=== PATIENT | female | born 1975 | race Caucasian/White ===

== ENCOUNTER 2021-06-01 21:12 | Emergency (ER) | payer OTHER ==
[2021-06-01] MEDS ORDERED: HYDROmorphone 1 MG/ML Syringe IVPUSH ONE ×2 (21:29→23:12)
[2021-06-01 21:50] VITALS: BP 127/60; PULSE 116
[2021-06-01 22:11] LABS: BENZODIAZEPINE,URINE NEGATIVE (NEGATIVE); MDMA (ECSTASY), URINE NEGATIVE (NEGATIVE); METHADONE,URINE NEGATIVE (NEGATIVE); METHAMPHETAMINES,URINE NEGATIVE (NEGATIVE); OPIATES,URINE NEGATIVE (NEGATIVE); TCA,URINE POSITIVE (NEGATIVE)
[2021-06-01 22:12] LABS: AMPHETAMINES,URINE NEGATIVE (NEGATIVE); BARBITURATES,URINE NEGATIVE (NEGATIVE); OXYCODONE,URINE NEGATIVE (NEGATIVE); PHENCYCLIDINE,URINE NEGATIVE (NEGATIVE)
--- NOTE | 2021-06-01 22:14 | EDM.PDOC ---
ED HPI GENERAL MEDICAL PROBLEM - General Chief Complaint: Abdominal Pain Stated Complaint: ABDOMINAL PAIN-HURTS TO PEE Time Seen by Provider: 06/01/21 21:45 Source of Information: Reports: Patient, RN, RN Notes Reviewed History Limitations: Reports: No Limitations - History of Present Illness INITIAL COMMENTS - FREE TEXT/NARRATIVE: Antoinette is a 46 y/o male who presents to the ED via personal vehicle with complaints of midline suprapubic tenderness. The patient reports her pain began abruptly approximately 30 minutes prior to her arrival while she was urinating. She states she was unable to continue voiding as the pain became too great. She characterizes the pain as sharp cramping which is now radiating into her left flank. 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 She denies attests to a "stomach bug" two days ago but otherwise denies recent illness. She denies fever, shaking chills, vision changes, dizziness, palpitations, shortness of breath, nausea, vomiting, hematuria, or diarrhea. Her last meal was this evening and consisted of pizza. She has taken no medications or performed any supportive cares for her symptoms. - Related Data Allergies Allergy/AdvReac Type Severity Reaction Status Date / Time No Known Allergies Allergy Verified 01/09/15 12:52 Home Meds: Home Meds . [No Known Home Meds] 01/09/15 [History] Past Medical History Other [employer] History: Breast Reduction - Past Surgical History Female Surgical History: Reports: Hysterectomy Other Female Surgeries/Procedures: 2016 Social & Family History - Tobacco Use Tobacco Use Status *Q: Never Tobacco User ED ROS GENERAL - Review of Systems Review Of Systems: Comprehensive ROS is negative, except as noted in HPI. ED EXAM, RENAL/ - Physical Exam Exam: See Below Exam Limited By: No Limitations General Appearance: Alert, Moderate Distress (Pain to midline suprapubic region) Eye Exam: Bilateral Eye: EOMI, Normal Inspection, PERRL (3mm) Ears: Normal External Exam, Hearing Grossly Normal Nose: Normal Inspection Throat/Mouth: Normal Inspection, Normal Oropharynx, Normal Voice, No Airway Compromise Head: Atraumatic, Normocephalic Neck: Normal Inspection, Supple, Non-Tender, Full Range of Motion Respiratory/Chest: No Respiratory Distress, Lungs Clear, Normal Breath Sounds, No Accessory Muscle Use, Chest Non-Tender. No: Crackles, Rales, Rhonchi, Wheezing, Stridor Cardiovascular: Normal Peripheral Pulses, Regular Rate, Rhythm, No Gallop, No Murmur, No Rub, Tachycardia GI/Abdominal: Normal Bowel Sounds, Soft, No Distention, No Abnormal Bruit, No Mass, Pelvis Stable, Guarding, Tender (Diffuse to abdomen, greatest to LLQ). No: Rigid, Rebound (Female) Exam: Deferred Rectal (Female) Exam: Deferred Back Exam: Normal Inspection, Full Range of Motion. No: CVA Tenderness (L), CVA Tenderness (R) Extremities: Normal Inspection, Normal Range of Motion, Normal Capillary Refill Neurological: Alert, Oriented, CN II-XII Intact, Normal Cognition, No Motor/Sensory Deficits Psychiatric: Anxious, Tearful Skin Exam: Warm, Dry, Intact, Normal Color, No Rash. No: Jaundice, Mottled, [place] Lymphatic: No Adenopathy Course - Vital Signs Last Recorded V/S: Last Vital Signs Temp 97.4 F 06/01/21 21:47 Pulse 116 H 06/01/21 21:47 Resp 20 06/01/21 21:47 BP 127/60 06/01/21 21:47 Pulse Ox 97 06/01/21 21:47 - Orders/Labs/Meds Orders: Active Orders 24 hr Category Date Time Status LACTIC ACID [CHEM] Routine Lab 06/02/21 00:21 Ordered Labs: Laboratory Tests 06/01/21 06/01/21 06/01/21 Range/Units 21:40 21:40 21:40 WBC 5.1 (5.0-10.0) 10^3/uL RBC 4.02 L (4.2-5.4) 10^6/uL Hgb 12.4 (12.0-16.0) g/dL Hct 37.6 (37.0-47.0) % MCV 93.5 (80-100) fL MCH 30.8 (27.0-34.0) pg MCHC 33.0 (33.0-35.0) g/dL Plt Count 301 (150-450) 10^3/uL Neut % (Auto) 28.0 L (42.2-75.2) % Lymph % (Auto) 57.1 H (20.5-50.1) % Garza % (Auto) 13.9 H (2-8) % Eos % (Auto) 0.8 L (1.0-3.0) % Baso % (Auto) 0.2 (0.0-1.0) % Sodium 139 (136-145) mmol/L Potassium 3.3 L (3.5-5.1) mmol/L Chloride 102 (98-107) mmol/L Carbon Dioxide 25 (21-32) mmol/L Anion Gap 15.3 H (7-13) mEq/L BUN 11 (7-18) mg/dL Creatinine 0.89 (0.55-1.02) mg/dL Est Cr Clr Drug Dosing 77.62 mL/min Estimated GFR (MDRD) > 60 BUN/Creatinine Ratio 12.4 (No establ ref range) Glucose 91 (70-99) mg/dL Lactic Acid 2.2 H* (0.4-2.0) mmol/L Calcium 8.6 (8.5-10.1) mg/dL Magnesium 1.9 (1.8-2.4) mg/dL Total Bilirubin 0.1 L (0.2-1.0) mg/dL AST 17 (15-37) U/L ALT 33 (14-59) U/L Alkaline Phosphatase 53 (46-116) U/L C-Reactive Protein 1.0 H (0.0-0.9) mg/dL Total Protein 7.0 (6.4-8.2) g/dL Albumin 3.4 (3.4-5.0) g/dL Globulin 3.6 Albumin/Globulin Ratio 0.9 Amylase 42 (25-115) U/L Lipase 114 (73-393) U/L HCG, Qual Negative Urine Color (YELLOW) Urine Appearance (CLEAR) Urine pH (5.0-9.0) Ur Specific [place] (1.005-1.030) Urine Protein (NEGATIVE) Urine Glucose (UA) (NEGATIVE) Urine Ketones (NEGATIVE) Urine Occult Blood (NEGATIVE) Urine Nitrite (NEGATIVE) Urine Bilirubin (NEGATIVE) Urine Urobilinogen (0.2-1.0) mg/dL Ur Leukocyte Esterase (NEGATIVE) Urine Opiates Screen (NEGATIVE) Ur Oxycodone Screen (NEGATIVE) Urine Methadone Screen (NEGATIVE) Ur Barbiturates Screen (NEGATIVE) U Tricyclic Antidepress (NEGATIVE) Ur Phencyclidine Scrn (NEGATIVE) Ur Amphetamine Screen (NEGATIVE) U Methamphetamines Scrn (NEGATIVE) Urine MDMA Screen (NEGATIVE) U Benzodiazepines Scrn (NEGATIVE) Urine Cocaine Screen (NEGATIVE) U Marijuana (THC) Screen (NEGATIVE) Ethyl Alcohol 20 (0) mg/dL SARS-CoV-2 RNA (FLRO) (NEGATIVE) 06/01/21 06/01/21 06/01/21 Range/Units 21:54 21:54 22:00 WBC (5.0-10.0) 10^3/uL RBC (4.2-5.4) 10^6/uL Hgb (12.0-16.0) g/dL Hct (37.0-47.0) % MCV (80-100) fL MCH (27.0-34.0) pg MCHC (33.0-35.0) g/dL Plt Count (150-450) 10^3/uL Neut % (Auto) (42.2-75.2) % Lymph % (Auto) (20.5-50.1) % Garza % (Auto) (2-8) % Eos % (Auto) (1.0-3.0) % Baso % (Auto) (0.0-1.0) % Sodium (136-145) mmol/L Potassium (3.5-5.1) mmol/L Chloride (98-107) mmol/L Carbon Dioxide (21-32) mmol/L Anion Gap (7-13) mEq/L BUN (7-18) mg/dL Creatinine (0.55-1.02) mg/dL Est Cr Clr Drug Dosing mL/min Estimated GFR (MDRD) BUN/Creatinine Ratio (No establ ref range) Glucose (70-99) mg/dL Lactic Acid (0.4-2.0) mmol/L Calcium (8.5-10.1) mg/dL Magnesium (1.8-2.4) mg/dL Total Bilirubin (0.2-1.0) mg/dL AST (15-37) U/L ALT (14-59) U/L Alkaline Phosphatase (46-116) U/L C-Reactive Protein (0.0-0.9) mg/dL Total Protein (6.4-8.2) g/dL Albumin (3.4-5.0) g/dL Globulin Albumin/Globulin Ratio Amylase (25-115) U/L Lipase (73-393) U/L HCG, Qual Urine Color Yellow (YELLOW) Urine Appearance Clear (CLEAR) Urine pH 7.0 (5.0-9.0) Ur Specific [place] 1.010 (1.005-1.030) Urine Protein Negative (NEGATIVE) Urine Glucose (UA) Negative (NEGATIVE) Urine Ketones Negative (NEGATIVE) Urine Occult Blood Negative (NEGATIVE) Urine Nitrite Negative (NEGATIVE) Urine Bilirubin Negative (NEGATIVE) Urine Urobilinogen 0.2 (0.2-1.0) mg/dL Ur Leukocyte Esterase Negative (NEGATIVE) Urine Opiates Screen Negative (NEGATIVE) Ur Oxycodone Screen Negative (NEGATIVE) Urine Methadone Screen Negative (NEGATIVE) Ur Barbiturates Screen Negative (NEGATIVE) U Tricyclic Antidepress Positive H (NEGATIVE) Ur Phencyclidine Scrn Negative (NEGATIVE) Ur Amphetamine Screen Negative (NEGATIVE) U Methamphetamines Scrn Negative (NEGATIVE) Urine MDMA Screen Negative (NEGATIVE) U Benzodiazepines Scrn Negative (NEGATIVE) Urine Cocaine Screen Negative (NEGATIVE) U Marijuana (THC) Screen Negative (NEGATIVE) Ethyl Alcohol (0) mg/dL SARS-CoV-2 RNA (FLOR) Negative (NEGATIVE) Meds: Medications Discontinued Medications Generic Name Dose Route Start Last Admin Trade Name Freq PRN Reason Stop Dose Admin Hydromorphone HCl 1 mg 06/01/21 21:29 06/01/21 22:29 Hydromorphone 1 Mg/Ml Syringe IVPUSH 06/01/21 21:30 Not Given ONETIME ONE Hydromorphone HCl 1 mg 06/01/21 23:12 06/01/21 23:21 Hydromorphone 1 Mg/Ml Syringe IVPUSH 06/01/21 23:13 1 mg ONETIME ONE Administration Iopamidol 100 ml 06/01/21 22:37 06/01/21 23:19 Iopamidol 612 Mg/Ml 100 Ml Bottle IVPUSH 06/01/21 22:38 100 ml ONETIME ONE Administration Ondansetron HCl 4 mg 06/01/21 21:29 06/01/21 23:22 Ondansetron 4 Mg/2 Ml Sdv IVPUSH 06/01/21 21:30 4 mg ONETIME ONE Administration - Radiology Interpretation Free Text/Narrative:: [facility] Final Radiology Report Call: [phone] assistance Online chat: [email or web address] Name: ANTOINETTE NEELY Age: 46Years F Date: 06/01/2021 SSN: -- : [id number] Study: CT ABDOMEN PELVIS W CONT Requesting Physician: Gladys Ordaz Images: [id number] Addl Studies: Provided Clinical History: Abrupt suprapubic pain, radiates to left flank Contrast: With Contrast Medium: isovue 300 Contrast Amount: 100 mL Contrast Method: Intravenous (IV) Page 1 of 2 PROCEDURE INFORMATION: Exam: CT Abdomen And Pelvis With Contrast Exam date and time: 06/01/2021 11:04 PM Age: 46 years old Clinical indication: Other: Abrupt suprapubic pain, radiates to left flank TECHNIQUE: Imaging protocol: Computed tomography of the abdomen and pelvis with contrast. Radiation optimization: All CT scans at this facility use at least one of these dose optimization techniques: automated exposure control; mA and/or kV adjustment per patient size (includes targeted exams where dose is matched to clinical indication); or iterative reconstruction. Contrast material: ISOVUE 300; Contrast volume: 100 ml; Contrast route: INTRAVENOUS (IV); COMPARISON: No relevant prior studies available. FINDINGS: Lungs: Lung bases are clear. Liver: Normal. No mass. Gallbladder and bile ducts: Normal. No calcified stones. No ductal dilation. Pancreas: Normal. No ductal dilation. Spleen: Normal. No splenomegaly. Adrenal glands: Normal. No mass. Kidneys and ureters: Normal. No hydronephrosis. Stomach and bowel: Unremarkable. No obstruction. No mucosal thickening. Appendix: Appendix is normal in caliber without inflammatory change. Intraperitoneal space: There is small amount free fluid in the dependent pelvis. Small amount fluid in the paracolic gutters bilaterally. Vasculature: Unremarkable. No abdominal aortic aneurysm. Lymph nodes: Unremarkable. No enlarged lymph nodes. Urinary bladder: Unremarkable as visualized. Reproductive: Atrophic uterus/prior resection. Involuting left ovarian follicle measuring 17.0 mm. Small amount fluid in the left adnexa. Bones/joints: Unremarkable. No acute fracture. Soft tissues: Unremarkable. IMPRESSION: 1. Negative for obstructing nephrolithiasis. 2. Small amount ascites. 3. Dominant involuting left ovarian 17.0 mm follicle. Thank you for allowing us to participate in the care of your patient. Dictated and Authenticated by: Berenice Mccord MD 06/02/2021 12:01 AM Central Time ([place] & [place]) - Re-Assessments/Exams Free Text/Narrative Re-Assessment/Exam: 06/01/21 Dilaudid 1mg IVP and Zofran 4mg IVP ordered, patient refusing IV. She states pain in improved. Findings of examination and lab work reviewed with patient. She states he pain is now returning; will obtain CT abdomen/pelvis w/ Patient now agreeable to IV start. Dilaudid 1mg and Zofran administered. Findings of CT reviewed with patient. Supportive cares reviewed. Red flag signs and symptoms which would warrant reevaluation discussed. Patient instructed to follow up with her PCP. Patient verbalized understanding and agreement with the plan of care. Departure - Departure Time of Disposition: 00:17 Disposition: Home, Self-Care 01 Condition: Good Clinical Impression: Follicular cyst of left ovary, Ovarian cyst rupture - Discharge Information *PRESCRIPTION DRUG MONITORING PROGRAM REVIEWED*: Not Applicable *COPY OF PRESCRIPTION DRUG MONITORING REPORT IN PATIENT ZHANE: Not Applicable Instructions: Ovarian Cyst Forms: ED Department Discharge Additional Instructions: 1.) Apply warm compresses to the abdomen as cramping persists. 2.) You may take ibuprofen (Advil/Motrin) 400mg every six hours, as pain persists. You may also take acetaminophen (Tylenol) 650-1000mg every six hours, as pain persists. You may stagger these medications so you are taking a dose of either every three hours. 3.) Follow up with your primary care provider regarding today's visit. Sepsis Event Note (ED) - Evaluation Sepsis Screening Result: No Definite Risk - Focused Exam Vital Signs: Vital Signs Temp Pulse Resp BP Pulse Ox 06/01/21 21:47 97.4 F 116 H 20 127/60 97 - My Orders Last 24 Hours: My Active Orders 06/02/21 00:21 LACTIC ACID [CHEM] Routine - Assessment/Plan Last 24 Hours: My Active Orders 06/02/21 00:21 LACTIC ACID [CHEM] Routine
[2021-06-01 22:19] LABS: ANION GAP 15.3 mEq/L (7-13); CHLORIDE,CL 102 mmol/L (98-107); SODIUM,NA 139 mmol/L (136-145)
[2021-06-01] MEDS: Ondansetron 4 MG/2 ML SDV IVPUSH ONE ×2 (22:29→23:22)
[2021-06-01] MEDS ORDERED: Iopamidol 612 MG/ML 100 ML Bottle IVPUSH ONE (22:37)
--- NOTE | 2021-06-02 00:01 | CT ---
PROCEDURE INFORMATION: Exam: CT Abdomen And Pelvis With Contrast Exam date and time: 06/01/2021 11:04 PM Age: 46 years old Clinical indication: Other: Abrupt suprapubic pain, radiates to left flank TECHNIQUE: Imaging protocol: Computed tomography of the abdomen and pelvis with contrast. Radiation optimization: All CT scans at this facility use at least one of these dose optimization techniques: automated exposure control; mA and/or kV adjustment per patient size (includes targeted exams where dose is matched to clinical indication); or iterative reconstruction. Contrast material: ISOVUE 300; Contrast volume: 100 ml; Contrast route: INTRAVENOUS (IV); COMPARISON: No relevant prior studies available. FINDINGS: Lungs: Lung bases are clear. Liver: Normal. No mass. Gallbladder and bile ducts: Normal. No calcified stones. No ductal dilation. Pancreas: Normal. No ductal dilation. Spleen: Normal. No splenomegaly. Adrenal glands: Normal. No mass. Kidneys and ureters: Normal. No hydronephrosis. Stomach and bowel: Unremarkable. No obstruction. No mucosal thickening. Appendix: Appendix is normal in caliber without inflammatory change. Intraperitoneal space: There is small amount free fluid in the dependent pelvis. Small amount fluid in the paracolic gutters bilaterally. Vasculature: Unremarkable. No abdominal aortic aneurysm. Lymph nodes: Unremarkable. No enlarged lymph nodes. Urinary bladder: Unremarkable as visualized. Reproductive: Atrophic uterus/prior resection. Involuting left ovarian follicle measuring 17.0 mm. Small amount fluid in the left adnexa. Bones/joints: Unremarkable. No acute fracture. Soft tissues: Unremarkable. IMPRESSION: 1. Negative for obstructing nephrolithiasis. 2. Small amount ascites. 3. Dominant involuting left ovarian 17.0 mm follicle.
== END 2021-06-02 00:30 | disposition home or self-care (01) ==
LOC: DL.ED 21:12
DX: N83.202 Unspecified ovarian cyst, left side (principal); N83.02 Follicular cyst of left ovary; Z20.822 Contact with and (suspected) exposure to COVID-19
CPT/HCPCS: 36415; 74177; 80053; 80305-QW; 80307; 81003; 82150; 83605; 83690; 83735; 84703; 85025; 86140; 96374; 96375; 99284-25; J1170; J2405; Q9967; U0002

== ENCOUNTER 2021-06-03 08:44 | Emergency (ER) | payer OTHER ==
[2021-06-03 08:59] VITALS: BP 133/87; PULSE 84
[2021-06-03 09:16] LABS: ANION GAP 14.7 mEq/L (7-13); CHLORIDE,CL 105 mmol/L (98-107); SODIUM,NA 142 mmol/L (136-145)
[2021-06-03 10:00] LABS: AMPHETAMINES,URINE NEGATIVE (NEGATIVE); BARBITURATES,URINE NEGATIVE (NEGATIVE); BENZODIAZEPINE,URINE NEGATIVE (NEGATIVE); MDMA (ECSTASY), URINE NEGATIVE (NEGATIVE); METHADONE,URINE NEGATIVE (NEGATIVE); METHAMPHETAMINES,URINE NEGATIVE (NEGATIVE); OPIATES,URINE NEGATIVE (NEGATIVE); OXYCODONE,URINE NEGATIVE (NEGATIVE); PHENCYCLIDINE,URINE NEGATIVE (NEGATIVE); TCA,URINE POSITIVE (NEGATIVE)
[2021-06-03] MEDS ORDERED: Iopamidol 612 MG/ML 100 ML Bottle IVPUSH ONE (10:47)
--- NOTE | 2021-06-03 10:47 | EDM.PDOC ---
ED HPI GENERAL MEDICAL PROBLEM - General Chief Complaint: Genitourinary Problem Stated Complaint: OVARIAN CYST BURST/ WAS HERE 2 DAYS AGO / WORSE Time Seen by Provider: 06/03/21 10:30 Source of Information: Reports: Patient History Limitations: Reports: No Limitations - History of Present Illness INITIAL COMMENTS - FREE TEXT/NARRATIVE: This 46 yo female patient reports to the ED with increased lower abdominal pain and cramping. The patient reports her symptoms get worse after she tries to urinate. The patient reports she was seen in the ED with similar symptoms 2 days ago, but her symptoms have gotten worse. The patient reports she took ibuprofen last night with little to no symptom relief. The patient reports she has not been drinking fluids due to increased pain with urination. The patient reports she has not had a bowel movement since last Sunday and now feels like her stomach is bloated. 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 Lower Abdomen Pain Score (Numeric/FACES): 4 - Related Data Allergies Allergy/AdvReac Type Severity Reaction Status Date / Time No Known Allergies Allergy Verified 06/03/21 08:53 Home Meds: Home Meds Amitriptyline HCl 100 mg PO BEDTIME 06/03/21 [History] Phentermine HCl 37.5 mg PO DAILY 06/03/21 [History] SUMAtriptan succinate [Imitrex] 100 mg PO ASDIRECTED PRN 06/03/21 [History] Past Medical History HEENT History: Reports: None Cardiovascular History: Reports: None Respiratory History: Reports: None Gastrointestinal History: Reports: None Genitourinary History: Reports: None 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 Musculoskeletal History: Reports: None Neurological History: Reports: Migraines Psychiatric History: Reports: Anxiety, Depression, Other (See Below) Other Psychiatric History: sleep issues Endocrine/Metabolic History: Reports: None Hematologic History: Reports: None Immunologic History: Reports: None Oncologic (Cancer) History: Reports: None - Infectious Disease History Infectious Disease History: Reports: None - Past Surgical History Head Surgeries/Procedures: Reports: None Female Surgical History: Reports: Hysterectomy Other Female Surgeries/Procedures: 2016 Dermatological Surgical History: Reports: Plastic Surgical Reconstruction/Repair Social & Family History - Family History Family Medical History: Unobtainable - Tobacco Use Tobacco Use Status *Q: Never Tobacco User - Caffeine Use Caffeine Use: Reports: Coffee - Recreational Drug Use Recreational Drug Use: No ED ROS GENERAL - Review of Systems Review Of Systems: Comprehensive ROS is negative, except as noted in HPI. ED EXAM, GI/ABD - Physical Exam Exam: See Below Exam Limited By: No Limitations General Appearance: Alert, WD/WN, Moderate Distress Eyes: Bilateral: Normal Appearance, EOMI Ears: Normal External Exam, Normal Canal, Hearing Grossly Normal, Normal TMs Nose: Normal Inspection, Normal Mucosa, No Blood Throat/Mouth: Normal Inspection, Normal Lips, Normal Teeth, Normal Gums, Normal Oropharynx, Normal Voice, No Airway Compromise Head: Atraumatic, Normocephalic Neck: Normal Inspection, Supple, Non-Tender, Full Range of Motion Respiratory/Chest: No Respiratory Distress, Lungs Clear, Normal Breath Sounds, N o Accessory Muscle Use, Chest Non-Tender Cardiovascular: Normal Peripheral Pulses, Regular Rate, Rhythm, No Edema, No Gallop, No JVD, No Murmur, No Rub GI/Abdominal Exam: Normal Bowel Sounds, No Organomegaly, No Abnormal Bruit, No Mass, Pelvis Stable, Tender (lower abdomen) (Female) Exam: Deferred Rectal (Female) Exam: Deferred Back Exam: Normal Inspection, Full Range of Motion, NT Extremities: Normal Inspection, Normal Range of Motion, Non-Tender, Normal Capillary Refill, No Pedal Edema Neurological: Alert, Oriented, CN II-XII Intact, Normal Cognition, Normal Gait, Normal Reflexes, No Motor/Sensory Deficits Psychiatric: Normal Affect, Normal Mood Skin Exam: Warm, Dry, Intact, Normal Color, No Rash Lymphatic: No Adenopathy Course - Vital Signs Last Recorded V/S: Last Vital Signs Temp 97.3 F 06/03/21 08:57 Pulse 84 06/03/21 08:57 Resp 18 06/03/21 08:57 BP 133/87 06/03/21 08:57 Pulse Ox 99 06/03/21 08:57 - Orders/Labs/Meds Orders: Active Orders 24 hr Category Date Time Status Abdomen Pelvis w Cont [CT] Urgent Exams 06/03/21 10:47 Ordered HYDROmorphone [Dilaudid] Med 06/03/21 12:51 Once 0.5 mg IVPUSH ONETIME ONE Labs: Laboratory Tests 06/03/21 06/03/21 06/03/21 Range/Units 08:54 08:54 08:54 WBC 4.0 L (5.0-10.0) 10^3/uL RBC 4.37 (4.2-5.4) 10^6/uL Hgb 13.3 (12.0-16.0) g/dL Hct 40.7 (37.0-47.0) % MCV 93.1 (80-100) fL MCH 30.4 (27.0-34.0) pg MCHC 32.7 L (33.0-35.0) g/dL Plt Count 329 (150-450) 10^3/uL Neut % (Auto) 44.8 (42.2-75.2) % Lymph % (Auto) 44.4 (20.5-50.1) % [place] % (Auto) 9.5 H (2-8) % Eos % (Auto) 0.8 L (1.0-3.0) % Baso % (Auto) 0.5 (0.0-1.0) % Sodium 142 (136-145) mmol/L Potassium 3.7 (3.5-5.1) mmol/L Chloride 105 (98-107) mmol/L Carbon Dioxide 26 (21-32) mmol/L Anion Gap 14.7 H (7-13) mEq/L BUN 13 (7-18) mg/dL Creatinine 0.92 (0.55-1.02) mg/dL Est Cr Clr Drug Dosing 75.09 mL/min Estimated GFR (MDRD) > 60 BUN/Creatinine Ratio 14.1 (No establ ref range) Glucose 94 (70-99) mg/dL Lactic Acid 0.6 (0.4-2.0) mmol/L Calcium 8.7 (8.5-10.1) mg/dL Total Bilirubin 0.2 (0.2-1.0) mg/dL AST 12 L (15-37) U/L ALT 29 (14-59) U/L Alkaline Phosphatase 54 (46-116) U/L Total Protein 7.1 (6.4-8.2) g/dL Albumin 3.6 (3.4-5.0) g/dL Globulin 3.5 Albumin/Globulin Ratio 1.0 Urine Color (YELLOW) Urine Appearance (CLEAR) Urine pH (5.0-9.0) Ur Specific [place] (1.005-1.030) Urine Protein (NEGATIVE) Urine Glucose (UA) (NEGATIVE) Urine Ketones (NEGATIVE) Urine Occult Blood (NEGATIVE) Urine Nitrite (NEGATIVE) Urine Bilirubin (NEGATIVE) Urine Urobilinogen (0.2-1.0) mg/dL Ur Leukocyte Esterase (NEGATIVE) Urine HCG, Qual Urine Opiates Screen (NEGATIVE) Ur Oxycodone Screen (NEGATIVE) Urine Methadone Screen (NEGATIVE) Ur Barbiturates Screen (NEGATIVE) U Tricyclic Antidepress (NEGATIVE) Ur Phencyclidine Scrn (NEGATIVE) Ur Amphetamine Screen (NEGATIVE) U Methamphetamines Scrn (NEGATIVE) Urine MDMA Screen (NEGATIVE) U Benzodiazepines Scrn (NEGATIVE) Urine Cocaine Screen (NEGATIVE) U Marijuana (THC) Screen (NEGATIVE) 06/03/21 06/03/21 06/03/21 Range/Units 09:36 09:36 09:36 WBC (5.0-10.0) 10^3/uL RBC (4.2-5.4) 10^6/uL Hgb (12.0-16.0) g/dL Hct (37.0-47.0) % MCV (80-100) fL MCH (27.0-34.0) pg MCHC (33.0-35.0) g/dL Plt Count (150-450) 10^3/uL Neut % (Auto) (42.2-75.2) % Lymph % (Auto) (20.5-50.1) % [place] % (Auto) (2-8) % Eos % (Auto) (1.0-3.0) % Baso % (Auto) (0.0-1.0) % Sodium (136-145) mmol/L Potassium (3.5-5.1) mmol/L Chloride (98-107) mmol/L Carbon Dioxide (21-32) mmol/L Anion Gap (7-13) mEq/L BUN (7-18) mg/dL Creatinine (0.55-1.02) mg/dL Est Cr Clr Drug Dosing mL/min Estimated GFR (MDRD) BUN/Creatinine Ratio (No establ ref range) Glucose (70-99) mg/dL Lactic Acid (0.4-2.0) mmol/L Calcium (8.5-10.1) mg/dL Total Bilirubin (0.2-1.0) mg/dL AST (15-37) U/L ALT (14-59) U/L Alkaline Phosphatase (46-116) U/L Total Protein (6.4-8.2) g/dL Albumin (3.4-5.0) g/dL Globulin Albumin/Globulin Ratio Urine Color Yellow (YELLOW) Urine Appearance Clear (CLEAR) Urine pH 8.5 (5.0-9.0) Ur Specific [place] 1.015 (1.005-1.030) Urine Protein Negative (NEGATIVE) Urine Glucose (UA) Negative (NEGATIVE) Urine Ketones Negative (NEGATIVE) Urine Occult Blood Negative (NEGATIVE) Urine Nitrite Negative (NEGATIVE) Urine Bilirubin Negative (NEGATIVE) Urine Urobilinogen 0.2 (0.2-1.0) mg/dL Ur Leukocyte Esterase Negative (NEGATIVE) Urine HCG, Qual Negative Urine Opiates Screen Negative (NEGATIVE) Ur Oxycodone Screen Negative (NEGATIVE) Urine Methadone Screen Negative (NEGATIVE) Ur Barbiturates Screen Negative (NEGATIVE) U Tricyclic Antidepress Positive H (NEGATIVE) Ur Phencyclidine Scrn Negative (NEGATIVE) Ur Amphetamine Screen Negative (NEGATIVE) U Methamphetamines Scrn Negative (NEGATIVE) Urine MDMA Screen Negative (NEGATIVE) U Benzodiazepines Scrn Negative (NEGATIVE) Urine Cocaine Screen Negative (NEGATIVE) U Marijuana (THC) Screen Negative (NEGATIVE) Meds: Medications Discontinued Medications Generic Name Dose Route Start Last Admin Trade Name Seunq PRN Reason Stop Dose Admin Iopamidol 100 ml 06/03/21 10:47 06/03/21 11:52 Iopamidol 612 Mg/Ml 100 Ml Bottle IVPUSH 06/03/21 10:48 100 ml ONETIME ONE Administration Departure - Departure Time of Disposition: 12:52 Disposition: Home, Self-Care 01 Condition: Fair Clinical Impression: Follicular cyst of left ovary, Ovarian cyst rupture - Discharge Information *PRESCRIPTION DRUG MONITORING PROGRAM REVIEWED*: Yes *COPY OF PRESCRIPTION DRUG MONITORING REPORT IN PATIENT ZHANE: No Instructions: Ovarian Cyst, [id number] Forms: ED Department Discharge Care Plan Goals: The patient was advised of the examination, lab and CT results with comparison to her previous CT during the visit. The patient was given two IV doses of Dilaudid (0.5 mg) and Zofran (4 mg) during the visit for pain. The patient was discharged with a script for [place] () #12 to take 1 by mouth every 6 hours as needed for pain. The patient was encouraged to follow-up with an service restorer emergency for continued evaluation and management. If the patient has any additional symptoms or concerns, the patient should either return to the emergency department or visit her primary care facility. Sepsis Event Note (ED) - Evaluation Sepsis Screening Result: No Definite Risk - Focused Exam Vital Signs: Vital Signs Temp Pulse Resp BP Pulse Ox 06/03/21 08:57 97.3 F 84 18 133/87 99 - My Orders Last 24 Hours: My Active Orders 06/03/21 10:47 Abdomen Pelvis w Cont [CT] Urgent 06/03/21 12:51 HYDROmorphone [Dilaudid] 0.5 mg IVPUSH ONETIME ONE - Assessment/Plan Last 24 Hours: My Active Orders 06/03/21 10:47 Abdomen Pelvis w Cont [CT] Urgent 06/03/21 12:51 HYDROmorphone [Dilaudid] 0.5 mg IVPUSH ONETIME ONE
[2021-06-03] MEDS ORDERED: HYDROmorphone 0.5 MG/0.5 ML Syringe IVPUSH ONE ×2 (12:51→13:20)
[2021-06-03] MEDS ORDERED: Ondansetron 4 MG/2 ML SDV IVPUSH ONE (12:57)
--- NOTE | 2021-06-03 12:59 | CT ---
EXAMINATION: Abdomen Pelvis w Cont SEX: Female AGE: 46 years CLINICAL HISTORY: 46-year-old obese female with increased pelvic pain since earlier this month when a CT exam on 01 June 2021 revealed "dominant involuting left ovarian follicle (17 mm) and small amount of ascites". Reevaluate. Scan technique: Volume acquisition of data abdomen and pelvis obtained during intravenous administration 100 cc nonionic Isovue contrast into cc per second via injector while patient was lying supine on the Siemens multi slice scanner [place], [place]. All data archived in the PACS system for storage, reformatting, study. Interpretation: 1. Free fluid in the dependent pelvis (ascites) and paracolic gutter, on the left, persists relatively unchanged in volume. Etiology? Left ovary and "follicle" also unchanged. 2. No pelvic or abdominal mass lesion. No pelvic or retroperitoneal lymphadenopathy. 3. Stool in the ascending right colon. Normal appendix RLQ. Small bowel unremarkable. No inflammatory "dirty" peritoneal fat. No free intraperitoneal air. Surgically absent uterus. Right ovary not identified. 4. Gallbladder, liver, stomach, spleen, pancreas, adrenal glands and kidneys anatomically correct i.e. negative. 5. Normal caliber aortoiliac vessels. No aneurysm or dissection. 6. Lung bases clear. Normal cardiac silhouette. No pericardial or pleural effusions. CONCLUSION: Pelvic fluid. Mild obstipation.
== END 2021-06-03 13:32 | disposition home or self-care (01) ==
LOC: DL.ED 08:44
DX: N83.202 Unspecified ovarian cyst, left side (principal); N83.02 Follicular cyst of left ovary
CPT/HCPCS: 36415; 74177; 80053; 80305-QW; 81003; 81025; 83605; 85025; 96374; 96375; 96376; 99284-25; J1170; J2405; Q9967

== ENCOUNTER 2022-03-05 00:46 | Observation (INO) | payer OTHER ==
[2022-03-05] MEDS ORDERED: HYDROmorphone 1 MG/ML Syringe IVPUSH ONE (01:22)
[2022-03-05 01:28] LABS: ANION GAP 11.4 mEq/L (7-13); CHLORIDE,CL 102 mmol/L (98-107); SODIUM,NA 139 mmol/L (136-145)
[2022-03-05 01:31] LABS: ESTIMATED GFR 85 mL/min (>=60)
[2022-03-05] MEDS ORDERED: Iopamidol 612 MG/ML 100 ML Bottle IVPUSH ONE (01:50)
[2022-03-05] MEDS ORDERED: Sodium Chloride 0.9% 1,000 ML IV ONE ×2 (01:53→04:13)
[2022-03-05] MEDS ORDERED: HYDROmorphone 0.5 MG/0.5 ML Syringe IVPUSH PRN (04:15)
[2022-03-05 06:46] LABS: ANION GAP 9.4 mEq/L (7-13); CHLORIDE,CL 104 mmol/L (98-107); SODIUM,NA 138 mmol/L (136-145)
[2022-03-05 06:49] LABS: ESTIMATED GFR 89 mL/min (>=60)
[2022-03-05] MEDS ORDERED: LORazepam 2 MG/ML SDV IVPUSH PRN (08:26)
[2022-03-05] MEDS ORDERED: Albuterol/Ipratropium 3.0-0.5 MG/3 ML Neb Soln NEB PRN (08:26)
[2022-03-05] MEDS ORDERED: oxyCODONE 5 MG Tab PO PRN (08:26)
[2022-03-05] MEDS ORDERED: Acetaminophen 325 MG Tab PO PRN (08:26)
[2022-03-05] MEDS ORDERED: Morphine 2 MG/ML SYRINGE IVPUSH PRN (08:26)
[2022-03-05] MEDS ORDERED: hydrALAZINE 20 MG/ML SDV IVPUSH PRN (08:36)
[2022-03-05] MEDS ORDERED: Melatonin 3 MG Tab PO PRN (08:37)
[2022-03-05] MEDS: Sodium Chloride 0.9% 1,000 ML IV SCH ×2 (10:48→20:26)
[2022-03-05] MEDS: Enoxaparin 40 MG/0.4 ML Syringe SUBCUT SCH (11:02)
[2022-03-05] MEDS: HYDROmorphone 0.5 MG/0.5 ML Syringe IVPUSH PRN (20:21)
[2022-03-05] MEDS: Ondansetron 4 MG/2 ML SDV IVPUSH PRN (20:38)
[2022-03-06] MEDS: HYDROmorphone 0.5 MG/0.5 ML Syringe IVPUSH PRN (03:57)
[2022-03-06] MEDS: Ondansetron 4 MG/2 ML SDV IVPUSH PRN (04:00)
[2022-03-06] MEDS: Sodium Chloride 0.9% 1,000 ML IV SCH ×2 (04:17→08:24)
[2022-03-06] MEDS: Pantoprazole 40 MG Tab.CR PO SCH ×2 (04:51→06:01)
[2022-03-06 07:10] LABS: ANION GAP 10.2 mEq/L (7-13)
[2022-03-06 07:29] LABS: HEMOGLOBIN A1C 5.5 % (<5.7)
[2022-03-06] MEDS: Enoxaparin 40 MG/0.4 ML Syringe SUBCUT SCH (08:24)
[2022-03-06] MEDS: Acetaminophen/Butalbital/Caffeine 325-50-40 MG Tab PO PRN ×2 (13:28→21:33)
[2022-03-07] MEDS: HYDROmorphone 0.5 MG/0.5 ML Syringe IVPUSH PRN ×2 (04:21→06:37)
[2022-03-07] MEDS: Ondansetron 4 MG/2 ML SDV IVPUSH PRN (04:28)
[2022-03-07] MEDS: Pantoprazole 40 MG Tab.CR PO SCH (06:38)
[2022-03-07 07:12] LABS: ANION GAP 10.7 mEq/L (7-13)
[2022-03-07 08:07] VITALS: BP 112/61; PULSE 81
[2022-03-07] MEDS ORDERED: SUMAtriptan 6 MG/0.5 ML SDV SUBCUT ONE (08:55)
[2022-03-07] MEDS: Enoxaparin 40 MG/0.4 ML Syringe SUBCUT SCH (09:13)
== END 2022-03-07 12:55 | disposition home or self-care (01) ==
LOC: DL.ED 00:46 → DL.MS 07:59
PROVIDERS: ADMIT Internal Medicine; ATTEND Internal Medicine
DX: K85.90 Acute pancreatitis without necrosis or infection, unspecified (principal); R74.8 Abnormal levels of other serum enzymes; K21.9 Gastro-esophageal reflux disease without esophagitis; F41.9 Anxiety disorder, unspecified; F32.A Depression, unspecified; E87.6 Hypokalemia; G43.909 Migraine, unspecified, not intractable, without status migrainosus; Z20.822 Contact with and (suspected) exposure to COVID-19; Z79.899 Other long term (current) drug therapy; Z98.890 Other specified postprocedural states
CPT/HCPCS: 36415; 71045; 74018; 74177; 80053; 80061; 80307; 81001; 81025; 82150; 83036; 83605; 83690; 83735; 84484; 85025; 85379; 85610; 87040; 93005; 93010; 96361; 96372; 96374; 96375; 96376; 99284; 99285-25; A9270-GY; G0378; J1170; J1650; J2405; J3030; J7030; Q9967; U0002

== ENCOUNTER 2022-10-17 18:32 | Emergency (ER) | payer OTHER ==
[2022-10-17 19:11] VITALS: BP 125/86; PULSE 112
[2022-10-17] MEDS ORDERED: Sodium Chloride 0.9% 10 ML Syringe FLUSH PRN (19:16)
[2022-10-17] MEDS ORDERED: Sodium Chloride 0.9% 1,000 ML IV ONE (19:16)
[2022-10-17] MEDS ORDERED: Acetaminophen 500 MG Tab PO ONE (19:17)
[2022-10-17] MEDS ORDERED: Ketorolac 30 MG/ML SDV IVPUSH ONE (19:17)
[2022-10-17 19:47] LABS: ANION GAP 15.7 mEq/L (7-13)
[2022-10-17] MEDS ORDERED: Penicillin G Benzathine/Procaine 600-600 1.2 Millunits/2 ML Syringe IM ONE (20:01)
== END 2022-10-17 20:30 | disposition home or self-care (01) ==
LOC: DL.ED 18:32
DX: J02.0 Streptococcal pharyngitis (principal)
CPT/HCPCS: 36415; 71045; 80053; 83605; 84484; 85025; 86140; 87430; 93005; 96361; 96372; 96374; 99284; A9270; J0558; J1885; J7030; J3490